=== PATIENT | male | born 1975 | race African-American/Black ===

== ENCOUNTER 2019-01-04 03:25 | Emergency (ER) ==
[2019-01-04 03:32] VITALS: TEMP 98.2; BMI 32.1
--- NOTE | 2019-01-04 04:11 | ED.PDOC ---
General ED Provider: Dr. YAMILA ROA Chief Complaint: Tooth Problem Stated Complaint: Patient is a 43 year old male who comes to the ER with Upper right toothache. Says it's broken/decayed. Has pain when he drinks liquids. Took aspirin today. He is looking for a dentist that would take his insurance. Time Seen by Physician: 03:50 Mode of Arrival: Walk-In Information Source: Patient Exam Limitations: No limitations Primary Care Provider: EVENS LOU[facility] Nursing and Triage Documentation Reviewed and Agree: Yes Does patient meet sepsis criteria?: No System Inflammatory Response Syndrome: Not Applicable Sepsis Protocol: For patient's 13 years and over: Temp is 96.8 and below OR 101 and greater Pulse >90 BPM Resp >20/minute Acutely Altered Mental Status Are patient's symptoms suggestive of a new infection, such as: -Pneumonia -Skin, Soft Tissue -Endocarditis -UTI -Bone, Joint Infection -Implantable Device -Acute Abdominal Infection -Wound Infection -Meningitis -Blood Stream Catheter Infection -Unknown Review of Systems - Review Of Systems Constitutional: Reports: No symptoms Eyes: Reports: No symptoms Ears, Nose, Mouth, Throat: Reports: Mouth pain Respiratory: Reports: No symptoms Cardiac: Reports: No symptoms GI: Reports: No symptoms : Reports: No symptoms Musculoskeletal: Reports: No symptoms Skin: Reports: No symptoms Neurological: Reports: No symptoms Endocrine: Reports: No symptoms Hematologic/Lymphatic: Reports: No symptoms All Other Systems: Reviewed and Negative Past Medical History - Past Medical History Previously Healthy: Yes Endocrine: Reports: None Cardiovascular: Reports: Hypertension Respiratory: Reports: None Hematological: Reports: None Gastrointestinal: Reports: None Genitourinary: Reports: None Neuro/Psych: Reports: None Musculoskeletal: Reports: None Cancer: Reports: None - Surgical History General Surgical History: Reports: None - Family History Family History: Reports: Unknown - Social History Smoking Status: Current every day smoker, Light tobacco smoker Hx Substance Use: No Alcohol Screening: None - Immunizations Tetanus Shot up to Date: Yes Physical Exam - Physical Exam Appearance: Ill-appearing Ill-appearing: Mild Pain Distress: Severe Eyes: KAYLYNN, EOMI, Conjunctiva clear ENT: Ears normal Neck: Supple Respiratory: Airway patent, Breath sounds clear, Breath sounds equal, Respirations nonlabored Cardiovascular: RRR, Pulses normal, No rub, No murmur Neurological: Alert, Oriented Psychiatric: Anxious Critical Care Note - Critical Care Note Total Time (mins): 0 Course - Course Orders, Labs, Meds: Orders Category Date Time Status Amoxicillin/Potassium Clav [Augmentin 875-125 mg Tab] MEDS 01/04/19 04:04 Stat 1 tab PO ONCE STA Hydrocodone Bit/Acetaminophen [Fine 7.5-325] MEDS 01/04/19 04:04 Stat 1 tab PO ONCE STA Ibuprofen [Motrin] MEDS 01/04/19 04:04 Stat 800 mg PO ONCE STA Medications Discontinued Medications Generic Name Dose Route Start Last Admin Trade Name Freq PRN Reason Stop Dose Admin Hydrocodone Bitart/Acetaminophen 1 tab 01/04/19 04:04 Fine 7.5-325 PO 01/04/19 04:05 ONCE STA Amoxicillin/Clavulanate Potassium 1 tab 01/04/19 04:04 Augmentin 875-125 Mg Tab PO 01/04/19 04:05 ONCE STA Ibuprofen 800 mg 01/04/19 04:04 Motrin PO 01/04/19 04:05 ONCE STA Vital Signs: Temp Pulse Resp BP Pulse Ox 01/04/19 03:25 98.2 F 93 H 20 152/100 H 96 Departure - Departure Time of Disposition: 04:40 Disposition: HOME SELF-CARE Discharge Problem: Dental abscess, Dental caries Instructions: Dental Abscess (ED) Condition: Stable Pt referred to PMD for follow-up: Yes IPMP verified?: No Additional Instructions: Take Medications as prescribed Follow up with dentist in 2-7 days Prescriptions: Hydrocodone Bit/Acetaminophen [Fine 5-325] 1 each PO Q6HR PRN #15 tablet PRN Reason: severe pain Amoxicillin [Amoxil] 500 mg PO TID #30 capsule Ibuprofen [Motrin] 600 mg PO Q6H PRN #30 tablet PRN Reason: Analgesia Allergies/Adverse Reactions: Allergies No Known Allergies Allergy (Unverified 01/04/19 03:31) Home Medications: Ambulatory Orders Amlodipine Besylate 10 mg PO DAILY 01/04/19 Amoxicillin [Amoxil] 500 mg PO TID #30 capsule 01/04/19 Aspirin [Aspirin EC] 81 mg PO DAILY 01/04/19 Clonidine HCl 0.2 mg PO BID 01/04/19 Gabapentin [Neurontin] 300 mg PO BID 01/04/19 Hydrocodone Bit/Acetaminophen [Fine 5-325] 1 each PO Q6HR PRN #15 tablet Ibuprofen [Motrin] 600 mg PO Q6H PRN #30 tablet 01/04/19 Lisinopril 20 mg PO DAILY 01/04/19 Disposition Discussed With: Patient, Family
[2019-01-04] MEDS: MOTRIN PO STA (04:17)
[2019-01-04] MEDS: NORCO 7.5-325 PO STA (04:17)
[2019-01-04] MEDS: AUGMENTIN 875-125 MG TAB PO STA (04:18)
[2019-01-04 04:49] VITALS: BP 148/88
== END 2019-01-04 04:49 | disposition home or self-care (01) ==
LOC: ED 03:25
DX: K08.89 Other specified disorders of teeth and supporting structures (principal); K04.7 Periapical abscess without sinus; K02.7 Dental root caries; S02.5XXA Fracture of tooth (traumatic), initial encounter for closed fracture; F17.210 Nicotine dependence, cigarettes, uncomplicated; I10 Essential (primary) hypertension
CPT/HCPCS: 99283